=== PATIENT | female | born 1965 | race Caucasian/White ===

== ENCOUNTER 2024-05-20 18:34 | Emergency (ER) | payer OTHER, SELFPAY ==
[2024-05-20 18:36] VITALS: BP 160/83
[2024-05-20 18:49] VITALS: BMI 27.1
[2024-05-20] MEDS: VALIUM INJECTION 5 MG IV (19:25)
[2024-05-20] MEDS: DECADRON 10 MG IV (19:26)
[2024-05-20 19:30] VITALS: BP 116/67
[2024-05-20] MEDS: TORADOL 30 MG IV (20:13)
[2024-05-20 22:38] VITALS: BP 131/68
[2024-05-20] MEDS: FLEXERIL 10 MG PO (22:38)
[2024-05-20] MEDS: NORCO 5/325 1 TABLET PO (22:38)
--- NOTE | 2024-05-20 22:46 | ED.GENMED ---
History of Present Illness
General
Chief Complaint: Back Pain
Source: patient
Exam Limitations: none
Time Seen by Provider: 05/20/24 19:14
Nursing documentation reviewed up to this point in time: agreed with
History of Present Illness
History of Present Illness:
Patient to ED with complaint of severe low back muscle spasms. States she has a historyo f neck and low back pain. Today she felt a pop and now has severe pain and spasms to low back. Brought to ED by spouse for eval. No fever/chills, recent
illness. No historyo f trauma, no bowel or bladder symptoms, no saddle paresthesia.
Past History
Past History
ED Past Medical History: Other (HNP)
ED Past Surgical History: Other (Hemorrhoidectomy)
Social History
Tobacco: Non-smoker
Alcohol: None
Drug: None
Personal:
Living: with family
Employment: Employed
Review of Systems
Review of Systems
Allergies reviewed?: Yes
All Other Systems: ROS reviewed and negative except as documented in HPI and ROS
Constitutional: Reports no symptoms
EENT: Reports no symptoms
Respiratory: Reports no symptoms
Cardiac: Reports no symptoms
ABD/GI: Reports no symptoms
: Reports no symptoms
Musculoskeletal: Reports back pain (low back pain and muscle spasms)
Skin: Reports no symptoms
Neurological: Reports no symptoms
Psychiatric: Reports no symptoms
Phy Exam
General Physical Exam
General Presentation: well appearing and mild distress
General age: appears stated age
General Skin: warm and dry
General Habitus: normal
General Mental: alert
General Hydration: appears well hydrated
Reflexes
Reflexes: +3: Left patellar and +3: Right patellar
Musculoskeletal Exam
Musculoskeletal Exam: no edema and neuro vasc intact
Skin Exam
Skin Exam: normal color, warm/dry and no rash
Psychiatric Exam
Psychiatric Exam: normal mood/affect
Course
Orders/Labs/Results
Orders:
Orders
05/20/24 19:17
Dexamethasone Sod Phosphate [Decadron] 10 mg IV NOW STA
diazePAM [Valium Injection] 5 mg IV NOW STA
05/20/24 20:05
Ketorolac [Toradol] 30 mg IV NOW STA
05/20/24 21:14
Lumbar Spine Complete, 4 View [CR Lumbar Spine Comp Min 4 Vw*] Urgent
Comment:
Reason For Exam: pain
05/20/24 22:26
Cyclobenzaprine HCl [Flexeril] 10 mg PO NOW STA
Hydrocodone 5/APAP 325 [Greene 5/325] 1 tablet PO NOW STA
Vital Signs
Initial and Last Documented VS:
Initial Vital Signs
Temp Pulse Resp BP Pulse Ox
98.4 F 73 18 160/83 97
05/20/24 18:36 05/20/24 18:36 05/20/24 18:36 05/20/24 18:36 05/20/24 18:36
Last Documented Vital Signs
Temp Pulse Resp BP Pulse Ox
98.4 F 67 18 131/68 97
05/20/24 18:36 05/20/24 22:38 05/20/24 22:38 05/20/24 22:38 05/20/24 22:38
*Radiology
Radiology exam reviewed: radiology read reviewed
*Pulse Oximetry
Patient hypoxic: no
*Critical Care Note
Total Time (30-74mins, 75-104mins- exclusive of procedures): Not Applicable
ED Attending Note
-
Portions of this chart may have been created with voice recognition software.� Occasional wrong word or��sound alike� substitutions may have occurred due to the inherent limitations of voice recognition software.
Discharge Plan
Departure
Patient Disposition: Home (Routine Discharge)
Date of Disposition: 05/20/24
Time of Disposition: 22:27
Patient with high blood pressure during this ER visit?: No
Condition: Good
Covid-19: Not Applicable
Discharge Problem:
Low back pain
Instructions: Low Back Pain (DC), Using Cold for Pain
Prescriptions:
New
hydrocodone-acetaminophen 5-325 mg tablet
1 tab PO Q4H PRN (Reason: Pain) Qty: 10 0RF
cyclobenzaprine 10 mg tablet
10 mg PO TID PRN (Reason: muscle spasms) Qty: 10 0RF
No Action
hyoscyamine sulfate 0.125 MG tablet, sublingual
0.125 mg sublingual TIDPRN PRN (Reason: spasms)
dicyclomine 10 MG capsule
10 mg PO TIDPRN PRN (Reason: cramps)
Patient Comments:
Referrals:
Lev Triana, [Family Provider] -
Juancho Diaz MD [Non-Admitting Privileges] - Call in 1-3 days for appt
Interventions
Interventions:
*Risk Screen - Suicide Last Done: 05/20/24 18:36
*General Assessment Last Done: 05/20/24 18:36
*Neglect/Abuse Screening Last Done: 05/20/24 18:36
ED- Fall Risk Assessment Last Done: 05/20/24 18:49
*ED COVID-19 Vaccine History Last Done: 05/20/24 18:49
*Nursing Disposition Last Done: 05/20/24 22:51
ED-Musculoskeletal Assessment Last Done: 05/20/24 18:49
Discharge Date and Time
Discharge Date/Time: 05/20/24 22:51
Print Language: KENYAN
Musculoskeletal Injury Exam
Musculoskeletal Injury Exam
Bilateral Lower Back:
Pain with Movement?: Moderate
Tender to palpation?: Moderate
Soft tissue swelling?: None
External deformity and angulation?: None
Joint effusion?: None
Contusion?: None
Hematoma-local bleeding into tissue?: None
Strain- Sprain- Tear (Connective tissue injury)?: Moderate
Crepitus with movement?: No
Joint instability?: No
Malalignment/deformity?: No
Range of motion: Limited
Distal skin color and temperature: normal-warm & good color
Capillary Refill: normal
Normal distal neurovascular exam?: Yes
== END 2024-05-20 22:51 | disposition home or self-care (01) ==
LOC: EMR 18:34
PROVIDERS: EMERGENCY PHYSICIAN Emergency Medicine; FAMILY PHYSICIAN Family Medicine
DX: M54.50 Low back pain, unspecified (principal)
CPT/HCPCS: 99283; 96374; 96375; 72110

== ENCOUNTER → 2024-11-23 13:46 | Outpatient (REF) | payer OTHER, SELFPAY ==
[2024-11-23 15:51] LABS: Urine Albumin Negative (Neg - Trace); Urine Bilirubin Negative (Negative); Urine Character Clear (Clear); Urine Color Yellow; Urine Glucose Negative (Negative); Urine Ketone 1+ (Negative); Urine Leukocyte Negative (Negative); Urine Nitrite Negative (Negative); Urine Occult Blood Negative (Negative); Urine Specific Gravity 1.015 (<1.030); Urine Urobilinogen Negative (Neg - 1+)
[2024-11-23 16:06] LABS: ALT (SGPT) 24 U/L (0-35); AST (SGOT) 29 U/L (14-36); Albumin 4.9 g/dl (3.5-5.0); Alkaline Phosphatase 83 U/L (38-126); Blood Urea Nitrogen 16 mg/dl (7-17); Calcium 9.3 mg/dl (8.4-10.2); Carbon Dioxide 28 mmol/L (22-30); Chloride 107 mmol/L (98-107); Glucose 91 mg/dl (70-99); HDL Cholesterol 62 mg/dl; LDL Cholesterol, Calculated 169 mg/dl; Potassium 4.3 mmol/L (3.5-5.1); Sodium 143 mmol/L (135-145); Total Bilirubin 0.7 mg/dl (0.2-1.3); Total Cholesterol 255 mg/dl (50-199); Total Protein 7.9 g/dl (6.3-8.2); Triglyceride 123 mg/dl (10-149); Very Low Density Lipoprotein 24 mg/dl (0-30); eGFR > 60.00
[2024-11-23 16:15] LABS: % Basophils 0.5 % (0-2); % Eosinophils 2.2 % (0-6); % Immature Granulocytes 0.2 % (0-0.5); % Lymphocytes 28.2 % (20.5-51.1); % Monocytes 7.8 % (1.7-9.3); % Neutrophils 61.1 % (42.2-75.2); Absolute Eosinophils 0.1 10^3/uL (0-0.7); Absolute Lymphocytes 1.6 10^3/uL (1.2-3.4); Absolute Monocytes 0.5 10^3/uL (0.1-0.6); Absolute Neutrophils 3.5 10^3/uL (1.4-6.5); Hematocrit 43.3 % (37.0-47.0); Hemoglobin 14.2 g/dL (12.0-16.0); Mean Corp Hgb Conc. 32.8 g/dL (33.0-37.0); Mean Corpuscular Hgb 27.7 pg (27.0-31.0); Mean Corpuscular Volume 84.4 fL (81.0-99.0); Mean Platelet Volume 10.9 fL (7.4-10.4); Nucleated Red Blood Cells % 0 %; Platelet Count 212 10^3/uL (130-400); Red Blood Cell Count 5.13 10^6/uL (4.20-5.40); Red Cell Dist. Width 12.8 % (11.5-14.5); White Blood Cell Count 5.8 10^3/uL (4.8-10.8)
[2024-11-23 16:35] LABS: TSH Reflex To Free T4 0.91 uIU/ml (0.47-4.68)
[2024-11-26 00:36] LABS: Lipoprotein a (Lp a) 10 mg/dL (<=29)
[2024-11-26 00:58] LABS: Apolipoprotein B 120 mg/dL (60-117)
== END ==
LOC: HWLAB 13:46
PROVIDERS: ATTENDING PHYSICIAN Family Medicine
DX: E78.00 Pure hypercholesterolemia, unspecified (principal); Z00.01 Encounter for general adult medical examination with abnormal findings
CPT/HCPCS: 36415; 80053; 80061; 81003; 82172; 83695; 84443; 85025

== ENCOUNTER → 2025-05-13 13:15 | Outpatient (REF) | payer OTHER, SELFPAY ==
[2025-05-13 13:49] LABS: Hematocrit 41.3 % (37.0-47.0); Hemoglobin 13.5 g/dL (12.0-16.0); Mean Corp Hgb Conc. 32.7 g/dL (33.0-37.0); Mean Corpuscular Volume 84.8 fL (81.0-99.0); Nucleated Red Blood Cells % 0 %; Platelet Count 182 10^3/uL (130-400); Red Cell Dist. Width 13.0 % (11.5-14.5)
[2025-05-13 13:55] LABS: ALT (SGPT) 24 U/L (0-35); AST (SGOT) 27 U/L (14-36); Albumin 4.9 g/dl (3.5-5.0); Alkaline Phosphatase 94 U/L (38-126); Blood Urea Nitrogen 12 mg/dl (7-17); Calcium 9.5 mg/dl (8.4-10.2); Carbon Dioxide 30 mmol/L (22-30); Chloride 104 mmol/L (98-107); Glucose 97 mg/dl (70-99); Potassium 3.9 mmol/L (3.5-5.1); Sodium 137 mmol/L (135-145); Total Protein 7.9 g/dl (6.3-8.2); eGFR > 60.00
== END ==
LOC: RAD 13:15
PROVIDERS: ATTENDING PHYSICIAN Physician Assistant Medical
DX: R10.32 Left lower quadrant pain (principal); R94.4 Abnormal results of kidney function studies
CPT/HCPCS: 36415; 74177; 80053; 85025; Q9967